=== PATIENT | male | born 1985 | race Caucasian/White ===

== ENCOUNTER 2024-05-14 15:12 | Emergency (ER) | payer OTHER ==
[~2024-05-14] VITALS: Ht 165.1 cm; Wt 69.0 kg
[2024-05-14 15:28] VITALS: BP 104/77; PULSE 88; RESP 18; TEMP 98.9; O2SAT 98
[2024-05-14] MEDS: LIDOCAINE HCL 1% 20ML VIAL INFIL ONE (18:04)
== END 2024-05-14 19:30 | disposition home or self-care (01) ==
LOC: ER 15:12
DX: S61.412A Laceration without foreign body of left hand, initial encounter (principal); X58.XXXA Exposure to other specified factors, initial encounter; Y93.89 Activity, other specified; Y92.89 Other specified places as the place of occurrence of the external cause; Y99.8 Other external cause status
CPT/HCPCS: 99283; 73130; 12001; J3490